=== PATIENT | female | born 1985 | race African-American/Black ===

== ENCOUNTER 2022-12-31 11:19 | Emergency (ER) | payer MEDICAID ==
[~2022-12-31] VITALS: Ht 167.6 cm; Wt 63.8 kg
[~2022-12-31 11:19] MED LIST: HYDR-1421
[2022-12-31 11:30] VITALS: BP 127/70; PULSE 97; RESP 16; TEMP 98.3; O2SAT 100
[2022-12-31] MEDS ORDERED: NAPR-746 PO (12:25)
[2022-12-31] MEDS ORDERED: CEPH500C PO (12:25)
== END 2022-12-31 12:36 | disposition home or self-care (01) ==
LOC: ER 11:19
DX: S01.331A Puncture wound without foreign body of right ear, initial encounter (principal); W18.09XA Striking against other object with subsequent fall, initial encounter; Y93.89 Activity, other specified; Y92.89 Other specified places as the place of occurrence of the external cause; Y99.8 Other external cause status

== ENCOUNTER 2024-04-01 13:18 | Emergency (ER) | payer MEDICAID ==
[~2024-04-01] VITALS: Ht 165.1 cm; Wt 62.4 kg
[~2024-04-01 13:18] MED LIST changes: +CEPH500C PO; +NAPR-746 PO
[2024-04-01] MEDS ORDERED: AUG875T PO (13:48)
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
[2024-04-01 15:00] VITALS: BP 120/79; PULSE 70; RESP 18; TEMP 99; O2SAT 100
[2024-04-01] MEDS: TETANUS-DIPTH-ACEL PERTUSSIS 0.5ML SYR Tdap IM ONE (15:09)
== END 2024-04-01 15:16 | disposition home or self-care (01) ==
LOC: ER 13:18
DX: S60.413A Abrasion of left middle finger, initial encounter (principal); H61.21 Impacted cerumen, right ear; F17.210 Nicotine dependence, cigarettes, uncomplicated; W50.3XXA Accidental bite by another person, initial encounter; Y93.89 Activity, other specified; Y92.89 Other specified places as the place of occurrence of the external cause; Y99.8 Other external cause status
CPT/HCPCS: 90471; 90715